=== PATIENT | female | born 1935 | race Caucasian/White ===

== ENCOUNTER → 2016-09-20 | Day surgery (SDC) | payer MEDICARE, BC ==
[~2016-09-20] VITALS: Ht 157.5 cm; Wt 64.7 kg
[~2016-09-20] MED LIST: ACETAMINOPHEN 1000 MG/100 ML VIAL IV ONE; ASPI-110 PO; BACITRACIN TOP OINT 15 GM TUBE ONE; BUPIVACAINE HCL PF 0.5% 30 ML VIAL ONE; CALTCHW5 PO; CARV3.12 PO; CELE200C PO; CLAR10CA3 PO; CLINDAMYCIN 600 MG/NS 100 ML IV SCH; CLINDAMYCIN PHOS 600 MG/4 ML VIAL ONE; DEXAMETHASONE SOD PHOS 4 MG/ML VIAL ONE; DICLOFENAC SODIUM 37.5 MG/ML VIAL IV PUSH ONE; FAMOTIDINE 20 MG/2 ML VIAL ONE; INSULIN HUMAN REGULAR 1,000 UNITS/10 ML VIAL SQ PRN; LACTATED RINGER'S 1000 ML INJ 500 ML IV SCH; LACTATED RINGER'S 1000 ML IV SCH; LIDOCAINE HCL 2% 50 ML VIAL ONE; LOSA25TA PO; METOPROLOL TARTRATE 25 MG TAB PO PRN; MIDAZOLAM HCL 2 MG/2 ML VIAL ONE; ONDANSETRON HCL 4 MG/2 ML VIAL IV PUSH ONE; PRIL20CA9 PO; PROPOFOL 200 MG/20 ML AMP IV ONE; PYRI1TAB2 PO; SODIUM CHLORID 0.9% 500 ML IV SCH; SODIUM CHLORIDE 0.9% INJ 100 ML ONE; VITA500T4 PO
[2016-09-20 09:16] VITALS: BP 179/87; PULSE 60; RESP 18; TEMP 98.1; O2SAT 95
[2016-09-20 11:51] VITALS: BP 172/88; PULSE 60; RESP 18; TEMP 97.6; O2SAT 96
--- NOTE | 2016-09-20 17:17 | EKG ---
Date Performed: 09/20/2016 Time Performed: 09:20:31 PTAGE: 81 years EKG: SINUS BRADYCARDIA WITH FIRST DEGREE AV BLOCK ABNORMAL ECG NO PREVIOUS TRACING DOCTOR: Trupti Abreu Interpretating Date/Time 09/20/2016 17:14:58
--- NOTE | 2016-09-21 14:42 | MP ---
cc: ZITA BANERJEE MD DATE OF SURGERY: 09/20/2016 PREOPERATIVE DIAGNOSIS: Left carpal tunnel syndrome. POSTOPERATIVE DIAGNOSIS: Left carpal tunnel syndrome. PROCEDURE Left carpal tunnel release. SURGEON Dr. Zita Banerjee TOURNIQUET TIME: 10 minutes at 250 mmHg. INDICATIONS FOR PROCEDURE Joycelyn Sykes is a very pleasant 81-year-old female who underwent right carpal tunnel release several weeks ago and has done very well from this standpoint. She presented for left carpal tunnel release. She was having a paresthesias in the median nerve distribution, confirmed on EMG nerve conduction study. She is well aware of the risks, she has had the other side done which included but is not limited to wound complications, infection and incomplete relief of paresthesias, stiffness, pain and she wishes to proceed. DESCRIPTION OF PROCEDURE The patient was identified in the preoperative holding area for extremity was marked. Patient was taken to the operating room where anesthesia was induced. The left upper extremity prepped and normal sterile fashion. Appproximately 6 cc of 2% lidocaine with no epinephrine used for local anesthesia over the carpal tunnel tourniquet was inflated to 250 mmHg for ten minutes. Longitudinal incision was made in the palm, toward the ring finger, palmar fascia was identified and incised trans carpal ligament was identified. There was significant compression of the median nerve. Care was taken protect the palmar arch ulnar nerve and ulnar artery the trans carpal ligament was identified and incised under direct visualization completely the provided good decompression of the median nerve. Tourniquet is released. Hemostasis obtained. The wound was closed with nylon. The patient was placed into a soft dressing, awoken from anesthesia without any complications. I will see her in approximately two weeks for suture removal. She will call sooner with any questions or concerns. MD MARCOS Moss/ /11:03 AM /2:31 PM [email or web address]
== END | disposition home or self-care (01) ==
LOC: HSDC 08:17
PROVIDERS: ATTEND Orthopaedic Surgery
DX: G56.02 Carpal tunnel syndrome, left upper limb (principal); I44.0 Atrioventricular block, first degree
CPT/HCPCS: 01810; 64721; 93005; J0131; J1100; J1130; J2250; J2405; J7120; J3010